=== PATIENT | female | born 1990 | race Caucasian/White ===

== ENCOUNTER 2024-11-12 12:01 | Day surgery (SDC) | payer OTHER ==
[2024-11-09 13:54] VITALS: BMI 24.2
[2024-11-12 12:28] VITALS: TEMP 97.7
[2024-11-12 14:06] VITALS: RESP 16
[2024-11-12 14:36] VITALS: BP 98/71; PULSE 81
== END 2024-11-12 14:37 | disposition home or self-care (01) ==
LOC: FASU-ENDO 12:01
PROVIDERS: ATTEND Internal Medicine Gastroenterology
PROC: 0DB78ZX Excision of Stomach, Pylorus, Via Natural or Artificial Opening Endoscopic, Diagnostic (ICD-10-PCS; 2024-11-12)
PROC: 0DB68ZX Excision of Stomach, Via Natural or Artificial Opening Endoscopic, Diagnostic (ICD-10-PCS; 2024-11-12)
PROC: 0DB48ZX Excision of Esophagogastric Junction, Via Natural or Artificial Opening Endoscopic, Diagnostic (ICD-10-PCS; principal; 2024-11-12 13:51)
DX: K29.50 Unspecified chronic gastritis without bleeding (principal); K21.00 Gastro-esophageal reflux disease with esophagitis, without bleeding
CPT/HCPCS: 81025; 88305-TC; 88342-TC